=== PATIENT | male | born 1955 | race Caucasian/White ===

== ENCOUNTER → 2017-07-22 | Outpatient (CLI) | payer OTHER ==
[~2017-07-22] MED LIST: No meds per pt.
== END | disposition home or self-care (01) ==
LOC: RAD 08:48 → MERGE 08:48
PROVIDERS: ATTEND Internal Medicine Endocrinology, Diabetes & Metabolism
DX: G31.89 Other specified degenerative diseases of nervous system (principal); R18.8 Other ascites; K13.0 Diseases of lips; M79.605 Pain in left leg; G51.0 Bell's palsy; R63.4 Abnormal weight loss
CPT/HCPCS: 70450